=== PATIENT | male | born 1975 | race Caucasian/White ===

== ENCOUNTER 2024-03-15 12:10 | Observation (INO) | payer OTHER ==
[2024-03-15 13:08] VITALS: BMI 27.3
[2024-03-15] MEDS: Nitroglycerin 2% Ointment 1 INCH/1 GM Packet TOP SCH (13:23)
[2024-03-15] MEDS: Pantoprazole DR 40 MG TAB PO SCH (13:23)
[2024-03-15 13:39] LABS: Troponin I Less than 0.010 ng/mL (< 0.028)
[2024-03-15] MEDS ORDERED: Communication Order-Pharmacy FS SCH (16:30)
[2024-03-15] MEDS: Acetaminophen 325 MG TAB PO PRN (16:32)
[2024-03-15] MEDS: Enoxaparin 100 MG (1 mL) SYRINGE SC SCH (18:08)
[2024-03-16] MEDS: Sodium Chloride 0.9% 1,000 ML IV SCH (05:31)
[2024-03-16] MEDS ORDERED: fentaNYL 50 mcg/mL 1 mL Vial ONE (08:50)
[2024-03-16] MEDS ORDERED: Midazolam HCl 2 mg/2 ml Vial ONE (08:50)
[2024-03-16] MEDS ORDERED: Heparin 10,000 UNITS/ 10 ML VIAL ONE (08:51)
[2024-03-16] MEDS ORDERED: Nitroglycerin 50 MG/250 ML BOT 0 ML ONE (08:51)
[2024-03-16] MEDS ORDERED: Sodium Chloride 0.9% 200 ML IV PRN (10:29)
[2024-03-16] MEDS ORDERED: Nitroglycerin 0.4 MG TAB (25 Tab Bottle) SL PRN (10:29)
[2024-03-16] MEDS: Lisinopril 20 MG TAB PO SCH (11:10)
[2024-03-16] MEDS: Aspirin 81 mg Enteric Coated Tablet PO SCH (11:10)
[2024-03-16] MEDS: Pantoprazole DR 40 MG TAB PO SCH (11:10)
[2024-03-16] MEDS ORDERED: Iopamidol 370 76% 100 ML VIAL ONE ×2 (12:31→12:57)
[2024-03-16 15:33] VITALS: BP 147/79; TEMP 97.8
== END 2024-03-16 18:15 | disposition home or self-care (01) ==
LOC: 2NO 12:10
PROVIDERS: ADMIT Internal Medicine Cardiovascular Disease; ATTEND Internal Medicine Cardiovascular Disease
PROC: 4A023N7 Measurement of Cardiac Sampling and Pressure, Left Heart, Percutaneous Approach (ICD-10-PCS; principal; 2024-03-16)
DX: R07.89 Other chest pain (principal); I10 Essential (primary) hypertension; E78.00 Pure hypercholesterolemia, unspecified; K21.9 Gastro-esophageal reflux disease without esophagitis; Z88.8 Allergy status to other drugs, medicaments and biological substances; Z79.899 Other long term (current) drug therapy
CPT/HCPCS: 36415; 71275; 80061; 83880; 84484; 93458; 93926; 96372; 99152; 99153; C1769; C1887; C1894; G0378; J1644; J1650; J2250; J3010; J7030; Q9967

== ENCOUNTER 2025-02-14 02:33 | Emergency (ER) | payer OTHER, SELFPAY ==
[2025-02-14] MEDS ORDERED: predniSONE 20 MG TAB ONE (04:31)
[2025-02-14] MEDS ORDERED: Ketorolac Tromethamine 30 MG (1 mL) VIAL ONE (04:31)
== END 2025-02-14 05:15 | disposition home or self-care (01) ==
LOC: ERS 02:33
DX: M10.9 Gout, unspecified (principal); I10 Essential (primary) hypertension; F17.290 Nicotine dependence, other tobacco product, uncomplicated
CPT/HCPCS: 96372; 99283; J1885; J7512